=== PATIENT | female | born 1955 | race Caucasian/White ===

== ENCOUNTER → 2019-09-24 15:30 | Outpatient (CLI) | payer MEDICARE, BC, SELFPAY ==
[2019-10-04 13:30] LABS: HPV APTIMA, High Risk Negative (Negative)
[2019-10-04 13:40] LABS: HPV Reflexed? YES, CHARGE PATIENT
== END ==
PROVIDERS: Visit Provider Obstetrics & Gynecology
DX: Z12.4 Encounter for screening for malignant neoplasm of cervix (principal)
CPT/HCPCS: 87624; 88175; G0145

== ENCOUNTER → 2020-10-20 16:00 | Outpatient (CLI) | payer MEDICARE, BC, SELFPAY ==
[2020-10-23 21:10] LABS: HPV APTIMA, High Risk Negative (Negative); HPV Reflexed? YES, CHARGE PATIENT
== END ==
PROVIDERS: Visit Provider Obstetrics & Gynecology
DX: R87.610 Atypical squamous cells of undetermined significance on cytologic smear of cervix (ASC-US) (principal); Z12.4 Encounter for screening for malignant neoplasm of cervix
CPT/HCPCS: 87624; 88175; G0145

== ENCOUNTER → 2024-07-05 | Outpatient (CLI) | payer MEDICARE, BC, SELFPAY ==
--- NOTE | 2024-07-05 14:49 | VDLE_ITS ---
Reason For Study: LLE Pain RIGHT LEFT FV is compressible, spontaneous, phasic, CFV is compressible, spontaneous, phasic, competent and demonstrates normal competent, and demonstrates normal augmentation. augmentation. Procedure FV is compressible, spontaneous, phasic, This is a venous duplex using B-mode, color competent and demonstrates normal flow and spectral Doppler. augmentation. Exam performed in department. POP V is compressible, spontaneous, phasic, The exam was diagnostic. competent and demonstrates normal augmentation. T/P Trunk is compressible. PTV is compressible. LT PerV is compressible. SFJ is INCOMPETENT and measures 0.38 cm. GSV proximal thigh measures 0.24 x 0.24 cm. Unable to visualize GSV from mid thigh to dist calf. Anterior accessory branch of SFJ appears tortuous and INCOMPETENT throughout. The ASV appears to split at prox/mid thigh and feed multiple varicose veins throughout thigh and crossing over top of kneecap ending at mid medial calf. ASV proximal thigh is INCOMPETENT for greater than 0.5 seconds and measures 0.32 x 0.31 cm. ASV mid calf is INCOMPETENT for greater than 0.5 seconds and measures 0.28 x 0.26 cm. SSV at junction is INCOMPETENT for greater than 0.5 seconds and measures 0.34 cm. SSV proximal calf is INCOMPETENT for greater than 0.5 seconds and measures 0.32 x 0.36 cm. VL/Venous Duplex US, Unilateral Interpretation Summary Deep veins of the left lower extremity are patent and compressible segmentally. There is no evidence of left lower extremity deep vein thrombosis. Positive for refux in the left saphenofemoral junction, accessory saphenous vei ns in thigh/calf, small saphenous vein. Ordering Physician: Lyla Sommers Referring Physician: Javed Granger Performed By: Kishore Moreno, RVT
== END | disposition home or self-care (01) ==
LOC: CVS 14:47
PROVIDERS: PCP Family Medicine; Referring Provider Physician Assistant; Visit Provider Physician Assistant
DX: I83.892 Varicose veins of left lower extremity with other complications (principal)
CPT/HCPCS: 93971